=== PATIENT | male | born 1980 | race Caucasian/White ===

== ENCOUNTER → 2017-12-12 | Outpatient (CLI) | payer OTHER ==
[~2017-12-12] MED LIST: CLR10 PO; ELDCR/30 TOP; MULT-506 PEG; TRMCR515 TOP
--- NOTE | 2017-12-12 09:50 | DIAGNOSTIC IMAGING REPORT ---
TESTICULAR ULTRASOUND HISTORY: VARICOCELECTOMY COMPARISON: None. FINDINGS: Right testis: 5.3 x 3.5 x 2.3 cm. There are no intratesticular masses. Normal color flow. No hydrocele. The epididymis is unremarkable. Left testis: 4.6 x 2.2 x 2.5 cm. There are no intratesticular masses. Normal color flow. No hydrocele. The epididymis is unremarkable. Left-sided varicocele. IMPRESSION: 1. Left-sided varicocele. 2. Normal bilateral testes. Electronically signed by: Souleymane Bell M.D. 12/12/2017 9:49 AM Dictated Date/Time: 12/12/2017 9:48 AM
== END | disposition home or self-care (01) ==
LOC: C.ULTR 08:54
PROVIDERS: ATTEND Urology
DX: I86.1 Scrotal varices (principal)

== ENCOUNTER → 2017-12-25 | Day surgery (SDC) | payer OTHER ==
[2017-12-12 10:05] VITALS: BMI 22.0
--- NOTE | 2017-12-12 10:24 | PAT Medication Instructions ---
Service Date Dec 12, 2017. Current Home Medication List Loratadine (Claritin), 10 MG PO DAILY PRN for seasonal allergies Multivitamin (Multivitamin), 1 TAB PEG QPM Pimecrolimus (Elidel), 1 APPLN TOP BID Triamcinolone Acet (Triamcinolone Acetonide), 1 APPLN TOP BID Medication Instructions For Your Scheduled Surgery - Hold the following medications 24 hours prior to surgery: Pimecrolimus (Elidel), 1 APPLN TOP BID Triamcinolone Acet (Triamcinolone Acetonide), 1 APPLN TOP BID - Hold the following medications the morning of surgery: Loratadine (Claritin), 10 MG PO DAILY PRN for seasonal allergies - Take the following medications as scheduled the night before surgery: Loratadine (Claritin), 10 MG PO DAILY PRN for seasonal allergies (If needed) Multivitamin (Multivitamin), 1 TAB PEG QPM If you have any questions please call us at [phone] or [phone] or [phone]
[2017-12-12 10:47] LABS: BASO % 0.8 %; BASO ABS # 0.04 K/uL (0-0.2); EOS % 3.1 %; EOS ABS # 0.15 K/uL (0-0.5); HEMATOCRIT 44.3 % (42-52); HEMOGLOBIN 15.2 g/dL (14.0-18.0); IG# 0.01 K/uL (0.00-0.02); LYMPH % 29.2 %; LYMPH ABS # 1.42 K/uL (1.2-3.4); MEAN CELL VOLUME 87.9 fL (80-100); MEAN CORPUSCULAR HEMOGLOBIN 30.2 pg (25-34); MEAN CORPUSCULAR HGB CONC 34.3 g/dl (32-36); MEAN PLATELET VOLUME 11.1 fL (7.4-10.4); MONO ABS # 0.44 K/uL (0.11-0.59); NEUT % 57.7 %; NEUT ABS # 2.81 K/uL (1.4-6.5); PLATELET COUNT 140 K/uL (130-400); RED CELL DISTRIBUTION WIDTH SD 41.5 fL (36.4-46.3); WHITE BLOOD COUNT 4.87 K/uL (4.8-10.8)
--- NOTE | 2017-12-12 11:16 | DIAGNOSTIC IMAGING REPORT ---
CHEST 2 VIEWS ROUTINE HISTORY: Preop. COMPARISON: None. FINDINGS: The lungs are clear. Cardiac silhouette is normal in size. No pleural effusions. No pneumothorax. IMPRESSION: No acute process. Electronically signed by: Souleymane Bell M.D. 12/12/2017 11:15 AM Dictated Date/Time: 12/12/2017 11:12 AM
[2017-12-12 11:26] LABS: CREATININE 0.88 mg/dl (0.60-1.40); POTASSIUM 3.9 mmol/L (3.5-5.1)
[~2017-12-25] VITALS: Ht 182.9 cm; Wt 74.3 kg
[~2017-12-25] MED LIST changes: +ACET300T3 PO; +ACETAMINOPHEN 325 MG TAB PO PRN; +ATROPINE SULFATE 0.1 MG/ML 5ML SYR IV PRN; +BACITRACIN OINT 15 GM TUBE ONE; +BUPIVACAINE 0.5 % 5 MG/1 ML MPF 30ML VIAL ONE; +CEFAZOLIN 2000MG IV PUSH 15 ML IV SCH; +DEXAMETHASONE SOD INJ 4 MG/ML VIAL ONE; +EpHEDrine SULFATE INJ 50 MG/ML AMP IV PRN; +FENTANYL CITRATE INJ 50 MCG/1 ML 2 ML VIAL IV PRN; +FENTANYL CITRATE INJ 50 MCG/1 ML 2 ML VIAL ONE; +LACTATED RINGER'S 1000ML 1,000 ML IV SCH; +LIDOCAINE HCL 2% 2 ML VIAL (20MG/ML) ONE; +MIDAZOLAM HCL 1 MG/ML 2ML VIAL ONE; -MULT-506 PEG; +MULT-506 PO; +ONDANSETRON INJ 2 MG/ML 2 ML VIAL IV PRN; +ONDANSETRON INJ 2 MG/ML 2 ML VIAL ONE; +OXYCODONE/ACETAMINOPHEN 5-325 TAB PO PRN; +PROMETHAZINE HCL INJ 6.25 MG in SODIUM CHLORIDE 0.9% 50ML 50 ML IV PRN; +PROPOFOL IV EMULSION 10 MG/ML 20 ML VIAL ONE; +SODIUM CHLORIDE 0.9% 1000ML 1,000 ML IV SCH
[2017-12-25 05:49] VITALS: BP 119/67; PULSE 66; TEMP 36.9; O2SAT 98; Ht 182.9 cm; Wt 74.3 kg
--- NOTE | 2017-12-25 07:20 | History & Physical Bridge Note ---
H&P Re-Evaluation Bridge Note: I have examined the patient, reviewed the History & Physical and in the interval since the performance of the History & Physical I have noted the following changes of clinical significance: No changes noted
--- NOTE | 2017-12-25 08:46 | [facility] Operative Report ---
Operative Report Operative Date December 25, 2017. Pre-Operative Diagnosis Left Varicocele Post-Operative Diagnosis Left Varicocele Procedure(s) Performed Left Subinguinal Variococelectomy Surgeon Dr. Rolando Valentino [employer] Lending Officer Surgeon(s) none Estimated Blood Loss 5mL Findings Numerous dilated veins at the level of the external inguinal ring Specimens none per surgeon Drains None Anesthesia Type General Complication(s) none Disposition yes Recovery Room / PACU Description of Procedure Patient was identified in the preoperative holding area, appropriate informed consents reviewed and completed and the patient was transported to the operating suite. Upon arrival he received appropriate preoperative antibiotics in the form of Ancef. Adequate general anesthesia was achieved and he was placed in supine position where he was sterilely prepped and draped in standard fashion. I began the case by palpating the external inguinal ring and the cord structures as they penetrated this ring. Approximately 1 cm below the external ring, I made a 3 cm incision through the skin. I carried this carefully through the superficial tissues until I could visualize the cord structures including the cremasteric muscles. Utilizing a Sherron clamp, I grasped the entire cord including the cremaster's, and passed a 1/4 inch [place] drain behind this to elevate the cord structures up to the incision I then carefully opened the cremaster is in longitudinal fashion preserving the muscle. I proceeded to regrasped the inner aspects of the true cord and then passed an instrument behind the cord structures excluding the cremaster muscles and again passing 1/4 inch [place] behind the cord structures to exclude the cremaster's and elevate the remaining cord structures up to the incision. I then began to splay out the cord structures identifying the vas, the testicular artery, and numerous dilated veins. With extreme care to avoid encroachment upon the vas or testicular artery, I each vein out individually and suture ligated each of these after clamping them proximally and distally and incising the vein between the 2 clamps. In total, I incised 7 veins in this area. 3-0 silk sutures were used for the ligation. At the conclusion of the case a palpable and visible artery remained as did the vas. All large, dilated veins have been adequately treated. I ensured excellent hemostasis and placed a cord block utilizing half percent Marcaine. I additionally infiltrated the subcutaneous tissues and the dermal layer. I reapproximated the subcutaneous tissue utilizing a 3-0 Vicryl before closing skin with subcutaneous 4-0 Monocryl. Dermabond was placed over the incision and the case was concluded. Patient tolerated the procedure extremely well and was extubated and taken to the PACU in stable condition. I attest to the content of the Intraoperative Record and any orders documented therein. Any exceptions are noted below.
--- NOTE | 2017-12-25 08:51 | Discharge Instructions ---
Discharge Instructions Date of Service December 25, 2017. Admission Reason for Admission: Varicocele Discharge Discharge Diagnosis / Problem: varicocele Discharge Goals Goal(s): Decrease discomfort, Improve function, Increase independence, Improve disease control Activity Recommendations Activity Limitations: per Instructions/Follow-up section Lifting Limitations: no more than 25 pounds, until after follow-up appointment Exercise/Sports Limitations: gradually increase as tolerated, until after follow-up appointment May Resume Sexual Activity: when tolerated Shower/Bathe: no limitations Driving or Machine Use: resume 1 day after discharge You may experience some bruising of the skin around the incision and the scrotum as well as some testicular pain (perhaps for the next 2-4 weeks - gradually improving over that time course). . Current Hospital Diet Patient's current hospital diet: Discharge Diet Recommended Diet: Regular Diet Procedures Procedures Performed: Left Subinguinal Variococelectomy Pending Studies Studies pending at discharge: no Medical Emergencies . Who to Call and When: Medical Emergencies: If at any time you feel your situation is an emergency, please call 911 immediately. . Non-Emergent Contact Non-Emergency issues call your: Urologist Call Non-Emergent contact if: you have a fever, temperature is above 101.5, your pain is not controlled, your pain is worsening, wound has increased drainage . . "Provider Documentation" section prepared by Oneil Hinton. . [place] Drug Monitoring Program Search Results: patient reviewed within database, no issues identified
--- NOTE | 2017-12-25 09:19 | Anesthesiology Progress Note ---
Anesthesia Post Op Note Date & Time December 25, 2017 at 09:19 Vital Signs Pain Intensity: 0 Vital Signs Past 12 Hours Date Time Temp Pulse Resp B/P (MAP) Pulse Ox O2 Delivery O2 Flow Rate FiO2 12/25/17 09:16 54 12 97 12/25/17 09:16 53 12 12/25/17 09:15 106/59 12/25/17 09:11 52 16 12/25/17 09:11 52 16 97 12/25/17 09:10 115/58 12/25/17 09:06 58 11 12/25/17 09:06 60 11 96 12/25/17 09:05 53 16 105/63 98 12/25/17 09:05 53 16 12/25/17 09:00 59 16 111/61 97 12/25/17 09:00 57 16 12/25/17 08:59 63 16 12/25/17 08:59 62 16 97 12/25/17 08:56 111/60 12/25/17 08:54 69 13 96 12/25/17 08:54 65 13 12/25/17 08:50 107/57 12/25/17 08:49 66 13 118/63 99 12/25/17 08:49 64 13 12/25/17 08:49 36.4 61 13 118/63 99 Room Air 12/25/17 05:49 36.9 66 18 119/67 (84) 98 Room Air Notes Mental Status: alert / awake / arousable, participated in evaluation Pt Amnestic to Procedure: Yes Nausea / Vomiting: adequately controlled Pain: adequately controlled Airway Patency, RR, SpO2: stable & adequate BP & HR: stable & adequate Hydration State: stable & adequate Anesthetic Complications: no major complications apparent
[2017-12-25 09:35] VITALS: BP 96/57; PULSE 45; TEMP 36.8; O2SAT 99
[2017-12-25 10:05] VITALS: BP 103/67; PULSE 48; TEMP 36.8; O2SAT 100
== END | disposition home or self-care (01) ==
LOC: C.ACU 05:21
PROVIDERS: ATTEND Urology
DX: I86.1 Scrotal varices (principal)